=== PATIENT | male | born 1990 | race Caucasian/White ===

== ENCOUNTER 2016-09-05 07:55 | Emergency (ER) | payer SELFPAY ==
[~2016-09-05] VITALS: Ht 175.3 cm; Wt 55.1 kg
[~2016-09-05 07:55] MED LIST: BACT800T5 PO; IBUP800T23 PO
[2016-09-05 07:59] VITALS: BP 130/76; PULSE 114; RESP 16; TEMP 98.4; O2SAT 99
[2016-09-05] MEDS ORDERED: DIAZEPAM 5 MG TAB PO ONE (08:15)
[2016-09-05] MEDS ORDERED: KETOROLAC TROMETHAMINE 60 MG/2 ML (IM) VIAL IM ONE (08:15)
--- NOTE | 2016-09-05 08:23 | PD ---
HPI Chief Complaint: Fall Time Seen by Provider: 08:08 Travel History International Travel<30 days: No Contact w/Intl Traveler<30days: No Traveled to known affect area: No History of Present Illness HPI 26yo M with no PMH presents to the ED with c/o right hip pain s/p fall from 6-7 steps on a ladder 3 days ago. States he was fixing a leaking roof and fell on his right hip/buttocks. Pt denies any head trauma. He was able to ambulate afterwards but with pain. Denies any fever, chest pain, sob, n/v, abdominal pain, focal weakness or numbness, urinary incontinence or fecal incontinence. Took acetaminophen and advil but did not help. PFSH Past Medical History Medical History: Denies Significant Hx Tetanus Vaccination: Unknown Past Surgical History Surgical History: No Previous Surgery Social History Alcohol Use: No Tobacco Use: Yes Substance Use: No Allergies-Medications (Allergen,Severity, Reaction): Coded Allergies: No Known Allergies (Unverified , 09/05/16) Reported Meds & Prescriptions Reported Meds & Active Scripts Active No Active Prescriptions or Reported Medications Review of Systems Except as stated in HPI: all other systems reviewed are Neg Physical Exam Narrative GENERAL: 26yoM not in distress. SKIN: Focused skin assessment warm/dry. HEAD: Atraumatic. Normocephalic. EYES: Pupils equal and round. No scleral icterus. No injection or drainage. ENT: No nasal bleeding or discharge. Mucous membranes pink and moist. NECK: No midline cervical spine ttp. CARDIOVASCULAR: Regular rate and rhythm. No murmur appreciated. RESPIRATORY: No accessory muscle use. Clear to auscultation. Breath sounds equal bilaterally. GASTROINTESTINAL: Abdomen soft, non-tender, nondistended. No rebound tenderness or guarding. MUSCULOSKELETAL: No obvious deformities. No clubbing. No cyanosis. No edema. + TTP right gluteus ankush. No ecchymoses, edema or erythema. NEUROLOGICAL: Awake and alert. No obvious cranial nerve deficits. Motor grossly within normal limits. Normal speech. Sensation intact and equal bilaterally. PSYCHIATRIC: Appropriate mood and affect; insight and judgment normal. Data Data Last Documented VS Vital Signs Date Time Temp Pulse Resp B/P Pulse Ox O2 Delivery O2 Flow Rate FiO2 09/05/16 08:07 17 Room Air 09/05/16 07:59 98.4 114 130/76 99 Orders Hip, Uni(Ap&Lat) W Ap Pelvis (09/05/16 ) Ketorolac Inj (Toradol Inj) (09/05/16 08:15) Diazepam (Valium) (09/05/16 08:15) MDM Medical Decision Making Medical Screen Exam Complete: Yes Emergency Medical Condition: Yes Differential Diagnosis Contusion vs. fracture vs. musculoskeletal pain Narrative Course 26yo M with right buttock/hip pain s/p fall off a ladder around 5-6feet 3 days ago. Pt is able to ambulate but states with pain in right buttocks region. No radiation or pain. No weakness or numbness. No red flags. Pt given toradol 30mg IM and valium 5mg PO with resolution of pain. FROM right hip. Xray of right hip unremarkable. Return precautions given. Diagnosis Primary Impression: Right buttock pain Patient Instructions: General Instructions Departure Forms: Tests/Procedures, Work Release Enter return to work date: Sep 07, 2016 Additional Instructions: Please follow up with your PMD in 3-7 days. Return to the ED if symptoms worsen. Med/Other Pt SpecificInfo: Prescription(s) given Scripts Ibuprofen 600 Mg [id number] Mg PO Q8HR PRN (PAIN) #20 TAB Ref 0 Prov:Marcia Grace DO 09/05/16 Disposition: 01 DISCHARGE HOME Condition: Stable Marcia Grace DO Sep 05, 2016 08:23
--- NOTE | 2016-09-05 09:08 | RADRPT ---
EXAM DATE/TIME: 09/05/2016 08:27 [facility] COMPARISON: No previous studies available for comparison. INDICATIONS : Right hip/pelvic pain post fall from ladder. MEDICAL HISTORY : None. SURGICAL HISTORY : None. ENCOUNTER: Initial ACUITY: 4 - 6 days PAIN SCORE: 7/10 LOCATION: Right hip FINDINGS: Examination of the right hip was performed with AP Pelvis. The primary and secondary trabecular kermit kwabena of the femoral neck is intact. The hip joint is of normal width without significant sclerosis or bony hypertrophy. The acetabulum is grossly intact. CONCLUSION: Unremarkable examination of the right hip. Paul Johnson MD on September 05, 2016 at 9:03 Board Certified Radiologist. This report was verified electronically.
[2016-09-05] MEDS ORDERED: IBUP-232 PO (09:20)
[2016-09-05 09:52] VITALS: BP 109/68
== END 2016-09-05 09:57 | disposition home or self-care (01) ==
LOC: PHED 07:55
DX: M25.551 Pain in right hip (principal); W10.9XXA Fall (on) (from) unspecified stairs and steps, initial encounter; Y92.008 Other place in unspecified non-institutional (private) residence as the place of occurrence of the external cause; Z72.0 Tobacco use
CPT/HCPCS: 73502; 96372; 99284; J1885

== ENCOUNTER 2016-09-27 14:56 | Emergency (ER) | payer SELFPAY ==
[~2016-09-27] VITALS: Ht 175.3 cm; Wt 53.4 kg
[~2016-09-27 14:56] MED LIST changes: -BACT800T5 PO; +IBUP-232 PO; -IBUP800T23 PO
[2016-09-27 15:02] VITALS: BP 154/84; PULSE 75; RESP 17; TEMP 98.1; O2SAT 100
[2016-09-27] MEDS ORDERED: BACT800T5 PO (16:06)
--- NOTE | 2016-09-27 16:07 | PD ---
HPI Chief Complaint: Eye Problems/Injury Time Seen by Provider: 15:20 Travel History International Travel<30 days: No Contact w/Intl Traveler<30days: No Traveled to known affect area: No History of Present Illness HPI 26 YO male with chief complaint of left upper eyelid swelling times one day. Patient reports he woke up this morning with left upper eyelid pain and swelling. He denies injury. He denies visual changes. No aggravating or alleviating factors. Symptoms severity mild. Pain severity 4/10. PFSH Past Medical History Medical History: Denies Significant Hx Diminished Hearing: No Immunizations Current: Yes Tetanus Vaccination: < 5 Years Past Surgical History Surgical History: No Previous Surgery Social History Alcohol Use: No Tobacco Use: Yes (1 PK) Substance Use: No Allergies-Medications (Allergen,Severity, Reaction): Coded Allergies: No Known Allergies (Unverified , 09/27/16) Reported Meds & Prescriptions Reported Meds & Active Scripts Active No Active Prescriptions or Reported Medications Review of Systems Except as stated in HPI: all other systems reviewed are Neg General / Constitutional: No: Fever Eyes: No: Visual changes HENT: No: Headaches Cardiovascular: No: Chest Pain or Discomfort Respiratory: No: Shortness of Breath Gastrointestinal: No: Abdominal Pain Physical Exam Narrative GENERAL: Well-nourished, well-developed patient. SKIN: Focused skin assessment warm/dry. HEAD: Normocephalic. EYES: No scleral icterus. No injection or drainage. Pupils equal round and reactive to light. EOMs intact. Visual acuity 20/20 in left eye. Left upper lid swelling and erythema. NECK: Supple, trachea midline. No JVD or lymphadenopathy. CARDIOVASCULAR: Regular rate and rhythm without murmurs, gallops, or rubs. RESPIRATORY: Breath sounds equal bilaterally. No accessory muscle use. GASTROINTESTINAL: Abdomen soft, non-tender, nondistended. Data Data Last Documented VS Vital Signs Date Time Temp Pulse Resp B/P (MAP) Pulse Ox O2 Delivery O2 Flow Rate FiO2 09/27/16 15:13 (107) 09/27/16 15:02 98.1 75 17 100 MDM Medical Decision Making Medical Screen Exam Complete: Yes Emergency Medical Condition: Yes Differential Diagnosis Stye, blepharitis, periorbital cellulitis Narrative Course 26-year-old male with chief complaint of left upper lid pain and swelling times one day. On exam patient has left upper lid swelling consistent with a stye. Given the significant amount of swelling patient will be placed on oral and topical antibiotics. He is instructed to apply warm compresses several times per day follow-up with his primary doctor. Patient verbalizes understanding and agrees to plan Diagnosis Primary Impression: Sty Qualified Codes: H00.014 - Hordeolum externum left upper eyelid Referrals: Primary Care Physician Additional Instructions: Take the antibiotics as prescribed. Follow-up with her doctor. Return to emergency department if he developed new or worsening symptoms. Scripts Sulfamethoxazole-Trimethoprim (Bactrim DS) 800-160 Mg Tab 1 TAB PO BID for Infection, #20 TAB 0 Refills Prov: Erica Calix 09/27/16 Disposition: 01 DISCHARGE HOME Condition: Stable Erica Calix Sep 27, 2016 16:07
[2016-09-27] MEDS ORDERED: ERYTHROMYCIN 0.5% OPTH OINT 3.5 GM TUBO EACH EYE ONE (16:15)
== END 2016-09-27 16:21 | disposition home or self-care (01) ==
LOC: PHEFT 14:56
DX: H00.014 Hordeolum externum left upper eyelid (principal); F17.210 Nicotine dependence, cigarettes, uncomplicated
CPT/HCPCS: 99283

== ENCOUNTER 2017-04-30 17:40 | Emergency (ER) | payer OTHER ==
[~2017-04-30] VITALS: Ht 175.3 cm; Wt 57.0 kg
[~2017-04-30 17:40] MED LIST changes: +BACT800T5 PO; -IBUP-232 PO
[2017-04-30 17:52] VITALS: BP 132/87; PULSE 86; RESP 16; TEMP 98.2; O2SAT 100
[2017-04-30] MEDS ORDERED: ROBA500T PO (19:19)
[2017-04-30] MEDS ORDERED: DICL75TA PO (19:19)
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
== END 2017-04-30 21:05 | disposition home or self-care (01) ==
LOC: PHEFT 17:40
DX: S13.4XXA Sprain of ligaments of cervical spine, initial encounter (principal); V43.62XA Car passenger injured in collision with other type car in traffic accident, initial encounter; F17.200 Nicotine dependence, unspecified, uncomplicated
CPT/HCPCS: 72125; 99283